=== PATIENT | female | born 1960 | race Caucasian/White ===

== ENCOUNTER 2017-04-24 08:15 | Day surgery (SDC) | payer OTHER ==
[~2017-04-24] VITALS: Ht 165.1 cm; Wt 101.8 kg
[2017-04-24] VITALS (13 sets, daily range): BP systolic 114–141; BP diastolic 61–88; PULSE 60–86; RESP 13–20; Ht 165.1 cm; Wt 101.8 kg
[2017-04-24] MEDS ORDERED: METOCLOPRAMIDE 10 MG INJ IV PRN (08:30)
[2017-04-24] MEDS ORDERED: FENTAnyl 50 MCG/ML VIAL IV PRN (08:30)
[2017-04-24] MEDS ORDERED: MEPERIDINE 25 MG INJ IV PRN (08:30)
[2017-04-24] MEDS ORDERED: DIPHENHYDRAMINE 50 MG INJ IV PRN (08:30)
[2017-04-24] MEDS ORDERED: HYDROmorphONE (0.2 MG/ML) 10ML SYG IV PRN ×3 (08:30)
[2017-04-24] MEDS ORDERED: ONDANSETRON 4 MG INJ IV PRN (08:30)
[2017-04-24] MEDS ORDERED: LISI20TA11 PO (08:31)
[2017-04-24] MEDS ORDERED: LIDOCAINE 2% (SDV) 5 ML INJ ONE ×2 (11:10→12:48)
[2017-04-24] MEDS ORDERED: ROPIVACAINE 0.5 % 30 ML VIAL ONE (11:11)
[2017-04-24] MEDS ORDERED: MIDAZOLAM 1 MG/ML 2 ML INJ ONE (11:11)
--- NOTE | 2017-04-24 12:01 | HPN ---
Date/Time of Note Date/Time of Note DATE: 04/24/17 TIME: 12:01 Interval H&P Admission Note Pt. seen H&P reviewed: No system changes KAI YAN MD Apr 24, 2017 12:01
[2017-04-24] MEDS ORDERED: OXYCODONE/ACETAMINOPHEN (5/325) TAB PO PRN (12:30)
[2017-04-24] MEDS ORDERED: morphine 2 MG INJ IV PRN (12:30)
[2017-04-24] MEDS ORDERED: morphine 10 MG INJ IV PRN (12:30)
[2017-04-24] MEDS ORDERED: ROCURONIUM 50 MG INJ ONE (12:48)
[2017-04-24] MEDS ORDERED: PROPOFOL 20 ML ONE (12:48)
[2017-04-24] MEDS ORDERED: SUCCINYLCHOLINE CHLORIDE 100 MG/5 ML SYG IV ONE (12:48)
[2017-04-24] MEDS ORDERED: CEFAZOLIN 1 GM INJ ONE (12:49)
[2017-04-24] MEDS ORDERED: SUGAMMADEX SODIUM 200 MG/2 ML VIAL IV ONE (12:49)
[2017-04-24] MEDS ORDERED: POLYMYXIN/BACITRACIN 1L IRRIG IRR ONE (13:01)
[2017-04-24] MEDS ORDERED: NEOMYC/POLYMYX/BACIT 30 GM OINT ONE (13:25)
[2017-04-24] MEDS: FENTAnyl 50 MCG/ML VIAL IV PRN ×2 (14:40→14:53)
--- NOTE | 2017-04-24 14:51 | SIPON ---
Date/Time of Note Date/Time of Note DATE: 04/24/17 TIME: 14:50 Operative Report Preoperative Diagnosis Right ankle pain Right ankle painful hardware Postoperative Diagnosis Right ankle pain Right ankle painful hardware Operation/Procedure Performed Right ankle hardware removal Surgeon Brian Yan MD assistant auto center manager Francheska Mcbride CRNA Anesthesia: general Estimated blood loss: minimal Transfusion Required none Specimen none Grafts/Implants none Complications none BRIAN YAN MD Apr 24, 2017 14:51
--- NOTE | 2017-04-24 21:25 | RADRPT ---
PROCEDURE: Intraoperative imaging of the right ankle with fluoroscopy. CLINICAL INDICATION: Right ankle pain. Hardware removal. Intraoperative. TECHNIQUE: Images of the right ankle were obtained in the operating room with an image intensifier . No radiologist was in attendance. Fluoroscopy time is 0.1 minutes and 3 images were obtained. COMPARISON: No prior study is available for comparison. FINDINGS: Images demonstrate hardware overlying the distal tibia and fibula. Screw holes are present in the di stal shafts of the tibia and fibula. IMPRESSION: 1. Intraoperative imaging of the right ankle. RPTAT: QQ .Fred Woods MD, Date Time Electronically viewed and signed by .Fred Woods MD, on 04/24/2017 21:25 .R/
--- NOTE | 2017-04-25 14:25 | RADRPT ---
Vent Rate: 60 bpm RR Interval: 0 msec ME Interval: 194 msec QRS Duration: 90 msec QT Interval: 416 msec QTC Interval: 416 msec P-R-T [place]: 54 - 40 - 48 degrees Normal sinus rhythm Normal ECG Electronically Signed By: Kofi Ewing [id number]
--- NOTE | 2017-04-27 02:43 | OPR ---
DATE OF OPERATION: 04/24/2017 PREOPERATIVE DIAGNOSIS: Right ankle pain, right ankle painful hardware. POSTOPERATIVE DIAGNOSES: Right ankle pain, ____ hardware. OPERATION PERFORMED: Right ankle hardware removal. SURGEON: Kai Valdovinos M.D. [employer] ROOM OPERATOR: Patti ____CONNER. ANESTHESIA: General. ESTIMATED BLOOD LOSS: Minimal. INDICATIONS: The patient is status post a right ankle pilon fracture. She now developed ankle arth ritis. In preparation for her future ankle fusion, we will plan on doing a hardware removal today w ith plan to come back in several months to do an ankle fusion. RISK NOTE: The patient was explained the risks and benefits of surgery in the patient's [facility], including, but not limited to, infection, bleeding, loss of limb, loss of life, need for futur e surgery, risk of injury to blood vessels, nerves or tendons, risk of anesthesia, risk of deep vein thrombosis. The patient understood these risks ____ signed the surgical consent form. DESCRIPTION OF PROCEDURE: The patient was met in the preoperative holding area and the correct oper ative extremity was marked and confirmed with both patient and consent. The patient was given preop erative antibiotics and anesthesia, The patient was brought to the operative theater, placed supine on operating table and given preoperative antibiotics and anesthesia. The patient was then turned to the prone position and all bony prominences were well padded. A tourniquet was placed on the ope rative extremity preoperatively. The patient was then prepped and draped in normal sterile fashion. Time-out was taken. All parties in the room agreed it was correct patient, extremity and procedur e. Tourniquet was brought up to 250 mmHg. An incision was made over the previous posterolateral inc ision site, taking it down through the typical interval to the posterior aspect of the tibia. Tere g this approach, care was taken to avoid any injury to the sural nerve, which was identified and ret racted appropriately. Further neurovascular structures were further protected during the case. The plate and screws were identified and all were removed without any complication. Attention was then turned to the distal fibula and an incision was made over the distal fibula site and the screws and plates were removed over the distal fibular shaft. At the end of the case, all wounds were irrigat ed thoroughly and closed in layers with 0 Vicryl followed by 2-0 Vicryl followed by a 3-0 Monocryl a nd a 4-0 Monocryl. All wounds were dressed with Xeroform, 4 x 4's, and ABDs and placed in a well-pa dded short leg splint. At the end of the case, all sponge and needle counts were correct. Dictated By: KAI OLIVARES/NTS Conf#: [id number] DID#: [id number]
== END 2017-04-24 16:35 | disposition home or self-care (01) ==
LOC: SDS 08:15
PROVIDERS: ATTEND Orthopaedic Surgery
DX: Z47.2 Encounter for removal of internal fixation device (principal); M25.571 Pain in right ankle and joints of right foot; I10 Essential (primary) hypertension; E66.01 Morbid (severe) obesity due to excess calories
CPT/HCPCS: 20680; 73610; 82306; 84703; 93005; J0690; J2175; J2250; J2405; J2795; J3010; Z7512; Z7610; 88300

== ENCOUNTER 2018-07-13 23:34 | Emergency (ER) | payer OTHER ==
[~2018-07-13] VITALS: Ht 165.1 cm; Wt 109.0 kg
[~2018-07-13 23:34] MED LIST: LISI-471 PO
[2018-07-13 23:47] VITALS: Ht 165.1 cm; Wt 109.0 kg
[2018-07-14] MEDS ORDERED: ALBUTEROL 0.083% (NEB) 2.5 MG/3 ML AMP NEB STA (02:38)
[2018-07-14] MEDS ORDERED: DEXAMETHASONE 10 MG/ML 1 ML INJ IV STA (02:38)
--- NOTE | 2018-07-14 02:57 | ERD ---
ER Documentation Chief Complaint Chief Complaint LEFT SIDED CHEST WALL PAIN RADIATES TO BACK WITH SOB X 2 WEEKS HPI 58-year-old female presenting with cough and shortness of breath for the past 2 weeks. She states that she initially had URI symptoms which have resolved. However the cough has not resolved. She has some back pain when she coughs, but is not complaining of any chest pain to me. She denies any fevers or chills. No phlegm production. No leg swelling ROS All systems reviewed and are negative except as per history of present illness. Medications Home Meds Active Scripts Albuterol Sulfate* (Ventolin HFA*) 18 Gm Hfa.aer.ad, 2 PUFF INHALATION Q4H, #1 INHALER Prov:TRAMAINE LEUNG MD 07/14/18 Prednisone* (Prednisone*) 20 Mg Tab, 60 MG PO DAILY for 4 Days, TAB Prov:TRAMAINE LEUNG MD 07/14/18 Reported Medications Lisinopril* (Lisinopril*) 20 Mg Tablet, 20 MG PO DAILY, #30 TAB 04/24/17 Allergies Allergies: Coded Allergies: No Known Allergy (Unverified , 07/14/18) PMhx/Soc Medical and Surgical Hx: pt denies Surgical Hx History of Surgery: No Anesthesia Reaction: No Hx Neurological Disorder: No Hx Respiratory Disorders: Yes (BRONCHITIS) Hx Cardiac Disorders: No Hx Psychiatric Problems: No Hx Miscellaneous Medical Probl: No Hx Alcohol Use: No Hx Substance Use: No Hx Tobacco Use: No Smoking Status: Never smoker FmHx Family History: No diabetes Physical Exam Vitals Vital Signs Date Temp Pulse Resp B/P (MAP) Pulse Ox O2 O2 Flow FiO2 Time Delivery Rate 07/14/18 98.6 74 21 132/64 100 Room Air 03:38 (86) 07/14/18 92 22 99 Nasal 2.0 02:59 Cannula 07/14/18 Nasal 2 02:50 Cannula 07/14/18 98.6 69 15 128/117 100 Room Air 02:33 (121) 07/13/18 98.5 70 19 182/84 97 23:47 (116) Physical Exam Const: No acute distress Head: Atraumatic Eyes: Normal Conjunctiva ENT: Normal External Ears, Nose and Mouth. Neck: Full range of motion. No meningismus. Resp: Clear to auscultation bilaterally Cardio: Regular rate and rhythm, no murmurs Abd: Soft, non tender, non distended. Normal bowel sounds Skin: No petechiae or rashes Back: No midline or flank tenderness Ext: No cyanosis, or edema Neur: Awake and alert Psych: Normal Mood and Affect Result Diagram: 07/14/1822907/14/18 0230 Results 24 hrs Laboratory Tests Test 07/14/18 02:30 White Blood Count 8.4 10^3/ul Red Blood Count 4.90 10^6/ul Hemoglobin 13.8 g/dl Hematocrit 41.3 % Mean Corpuscular Volume 84.3 fl Mean Corpuscular Hemoglobin 28.2 pg Mean Corpuscular Hemoglobin Concent 33.4 g/dl Red Cell Distribution Width 12.9 % Platelet Count 292 10^3/UL Mean Platelet Volume 8.4 fl Immature Granulocytes % 0.400 % Neutrophils % 53.6 % Lymphocytes % 37.5 % Monocytes % 4.7 % Eosinophils % 3.2 % Basophils % 0.6 % Nucleated Red Blood Cells % 0.0 /100WBC Immature Granulocytes # 0.030 10^3/ul Neutrophils # 4.5 10^3/ul Lymphocytes # 3.1 10^3/ul Monocytes # 0.4 10^3/ul Eosinophils # 0.3 10^3/ul Basophils # 0.1 10^3/ul Nucleated Red Blood Cells # 0.0 10^3/ul Sodium Level 140 mmol/L Potassium Level 4.2 mmol/L Chloride Level 104 mmol/L Carbon Dioxide Level 27 mmol/L Anion Gap 9 Blood Urea Nitrogen 13 mg/dl Creatinine 0.68 mg/dl Est Glomerular Filtrat Rate mL/min > 60 mL/min Glucose Level 114 mg/dl Calcium Level 9.4 mg/dl Troponin I < 0.012 ng/ml Current Medications Medications Dose Sig/Omi Start Time Status Last (Trade) Ordered Route PRN Stop Time Admin Dose Reason Admin Albuterol 5 mg ONCE STAT 07/14/18 DC 07/14/18 (Proventil NEB 02:38 02:59 0.083% (Neb)) 07/14/18 02:39 10 mg ONCE STAT 07/14/18 DC 07/14/18 Dexamethasone IV 02:38 02:46 (Decadron) 07/14/18 02:39 Procedures/MDM EMERGENT LABS AND DIAGNOSTIC STUDIES: Lab Results above were reviewed and interpreted by me. CBC: no anemia or evidence of infection 12-lead EKG was interpreted by Feliciano Leung MD: Normal Sinus Rhythm Normal axis Normal intervals No acute ST or T wave changes suggestive of acute ischemia or STEMI. Radiology Results as interpreted by Radiology below were reviewed by Ella Leung MD: Chest Xray: [] Initial Nursing notes reviewed. Previous Medical Records requested via the Electronic Health Record. EMERGENCY DEPARTMENT COURSE / MEDICAL DECISION MAKING: Patient is presenting with symptoms consistent with bronchitis, likely viral in etiology. I have a low suspicion for bacterial bronchitis or pneumonia. Patients symptoms have stabilized while in the department after therapy. Vitals and respiratory status are stable. Patient is appropriate for outpatient supportive treatment and continued follow up with PCP in the next 2 days. If symptoms are not improving or worsening, patient instructed to return to ED for repeat evaluation. Patient's blood pressure was elevated (>120/80) but appears stable without evidence of hypertensive emergency or urgency. The patient was counseled about the risks of hypertension and urged to pursue outpatient monitoring and therapy within a week with their primary care physician. Departure Diagnosis: Primary Impression: Acute bronchitis Bronchitis organism: unspecified organism Qualified Codes: J20.9 - Acute bronchitis, unspecified Condition: Stable TRAMAINE LEUNG MD Jul 14, 2018 02:57
[2018-07-14] MEDS ORDERED: PRED20TA PO (03:29)
[2018-07-14] MEDS ORDERED: ALBU18HF INHALATION (03:29)
[2018-07-14 03:38] VITALS: BP 132/64; PULSE 74; RESP 21
== END 2018-07-14 04:12 | disposition home or self-care (01) ==
LOC: E/R 23:34
DX: J20.9 Acute bronchitis, unspecified (principal); R06.02 Shortness of breath
CPT/HCPCS: 36415; 71045; 80048; 84484; 85025; 94664; 96374; J1100; Z7502; Z7610; 93005

== ENCOUNTER 2018-07-22 13:13 | Emergency (ER) | payer OTHER ==
[~2018-07-22] VITALS: Ht 165.1 cm; Wt 101.8 kg
[~2018-07-22 13:13] MED LIST changes: +ALBU18HF INHALATION; +PRED20TA PO
[2018-07-22 13:19] VITALS: Ht 165.1 cm; Wt 101.8 kg
[2018-07-22] MEDS ORDERED: SOD CHLORIDE 0.9% 1,000 ML IV STA (13:41)
[2018-07-22] MEDS ORDERED: ALBUTEROL 0.083% (NEB) 2.5 MG/3 ML AMP NEB STA (13:41)
--- NOTE | 2018-07-22 14:01 | ERD ---
ER Documentation Chief Complaint Chief Complaint dizziness x 1 week, SOB x this am HPI This is a 58-year-old female who is had a cough with nonproductive sputum, she has had this for 1 week. She says that she has had no fever no nausea vomiting or diarrhea. She this morning she woke up and took her vitamins with her lisinopril and Norvasc. She then got into the shower and when she got out of the shower she felt dizzy and felt like she is going to pass out. There was no syncopal episode. No chest pain or shortness of breath. No focal neurological complaints. She said she took her blood pressure via a wrist BP monitor which showed blood pressure in the systolic in the 80s. ROS All systems reviewed and are negative except as per history of present illness. Medications Home Meds Active Scripts Albuterol Sulfate* (Ventolin HFA*) 18 Gm Hfa.aer.ad, 2 PUFF INHALATION Q4H, #1 INHALER Prov:TRAMAINE LEYVA MD 07/14/18 Reported Medications Lisinopril* (Lisinopril*) 20 Mg Tablet, 20 MG PO DAILY, #30 TAB 04/24/17 Discontinued Scripts Prednisone* (Prednisone*) 20 Mg Tab, 60 MG PO DAILY for 4 Days, TAB Prov:TRAMAINE LEYVA MD 07/14/18 Allergies Allergies: Coded Allergies: No Known Allergy (Unverified , 07/22/18) PMhx/Soc History of Surgery: No Anesthesia Reaction: No Hx Neurological Disorder: No Hx Respiratory Disorders: Yes (BRONCHITIS) Hx Cardiac Disorders: Yes (HTN) Hx Psychiatric Problems: No Hx Miscellaneous Medical Probl: No Hx Alcohol Use: No Hx Substance Use: No Hx Tobacco Use: No Smoking Status: Never smoker FmHx Family History: No coronary disease Physical Exam Vitals Vital Signs Date Temp Pulse Resp B/P (MAP) Pulse Ox O2 O2 Flow FiO2 Time Delivery Rate 07/22/18 82 18 98 21 14:21 07/22/18 99.6 90 18 142/75 96 13:19 (97) Physical Exam Const: Well-developed, well-nourished Head: Atraumatic, normocephalic Eyes: Normal Conjunctiva, PERRLA, EOMI, normal sclera, no nystagmus ENT: Normal External Ears, Nose and Mouth, moist mucus membranes. Neck: Full range of motion. No meningismus, no lymphadenopathy. Resp: No increased work of breathing, repetitive coughing mild wheezes expiratory, but good air movement] Cardio: Regular rate and rhythm, no murmurs, S1 S2 present Abd: Soft, non tender x 4, non distended. Normal bowel sounds, no guarding or rebound, no pulsitile abdominal masses or bruits Skin: No petechiae or rashes, no ecchymosis , no maculopapular rash Back: No midline or flank tenderness Ext: No cyanosis, or edema, FROM x 4, normal inspection, neurovascularly intact x 4 Neur: Awake and alert, STR 5/5 x 4, sensation intact x 4, no focal findings, cerebellum intact Psych: Normal Mood and Affect Result Diagram: 07/22/18 1346 07/22/18 1346 Results 24 hrs Laboratory Tests Test 07/22/18 13:46 White Blood Count 10.6 10^3/ul Red Blood Count 5.61 10^6/ul Hemoglobin 15.9 g/dl Hematocrit 46.9 % Mean Corpuscular Volume 83.6 fl Mean Corpuscular Hemoglobin 28.3 pg Mean Corpuscular Hemoglobin Concent 33.9 g/dl Red Cell Distribution Width 12.9 % Platelet Count 296 10^3/UL Mean Platelet Volume 8.5 fl Immature Granulocytes % 1.400 % Neutrophils % 73.1 % Lymphocytes % 16.1 % Monocytes % 7.4 % Eosinophils % 1.6 % Basophils % 0.4 % Nucleated Red Blood Cells % 0.0 /100WBC Immature Granulocytes # 0.150 10^3/ul Neutrophils # 7.8 10^3/ul Lymphocytes # 1.7 10^3/ul Monocytes # 0.8 10^3/ul Eosinophils # 0.2 10^3/ul Basophils # 0.0 10^3/ul Nucleated Red Blood Cells # 0.0 10^3/ul Sodium Level 142 mmol/L Potassium Level 4.3 mmol/L Chloride Level 107 mmol/L Carbon Dioxide Level 25 mmol/L Anion Gap 10 Blood Urea Nitrogen 20 mg/dl Creatinine 1.21 mg/dl Est Glomerular Filtrat Rate mL/min 46 mL/min Glucose Level 164 mg/dl Calcium Level 9.6 mg/dl Troponin I < 0.012 ng/ml Current Medications Medications Dose Sig/Omi Start Time Status Last (Trade) Ordered Route PRN Stop Time Admin Dose Reason Admin Sodium 1,000 ml @ Q1H STAT 07/22/18 DC 07/22/18 Chloride 1,000 mls/hr IV 13:41 13:53 07/22/18 14:40 Albuterol 7.5 mg ONCE STAT 07/22/18 DC 07/22/18 (Proventil NEB 13:41 14:21 0.083% (Neb)) 07/22/18 13:43 Procedures/MDM Patient: JULIANA HAWLEY : 1960 Age: 58 Sex: F MR #: [id number] DOS: 07/22/18 1341 Ordering MD: JOSELIN VALLES DO Location: E/R Room/Bed: PROCEDURE: XR Chest. CLINICAL INDICATION: chest pain TECHNIQUE: Single frontal view of the chest was obtained COMPARISON: 07/14/2018 FINDINGS: The heart and mediastinum are within normal limits. The lungs are clear. There is no pleural effusion or pneumothorax. RPTAT: AA IMPRESSION: No acute disease. .Romie Vazquez MD, MD Date Time Electronically viewed and signed by .Romie Vazquez MD, MD on 07/22/2018 14:49 .S/ CC: JOSELIN VALLES DO [id number] EKG: Rate/Rhythm: Normal Sinus Rhythm,NL intervals QRS, ST, QT: NORMAL MD, QRS, QT] Impression: NORMAL EKG Patient was near syncopal this morning is likely due to her blood pressure meds. Her vital signs are currently stable here. She has a cough but no pneumonia on x-ray likely has a viral illness/bronchitis which I will treat accordingly. Will discharge home with albuterol inhaler, prednisone, Zithromax Patient feels much better at this time, and vital signs are normal, symptoms have improved. I did give strict instructions to return to the ED if symptoms continue or worsen, patient will otherwise follow-up with primary care physician. Patient understood instructions and agreed to plan. Disclaimer: Inadvertent spelling and grammatical errors are likely due to EHR/dictation software use and do not reflect on the overall quality of patient care. Also, please note that the electronic time recorded on this note does not necessarily reflect the actual time of the patient encounter. Departure Diagnosis: Primary Impression: Near syncope Additional Impression: Bronchitis Condition: Stable JOSELIN VALLES DO Jul 22, 2018 14:01
[2018-07-22] MEDS ORDERED: AZIT250T PO (15:43)
[2018-07-22] MEDS ORDERED: ALBU8.5H8 INH (15:43)
[2018-07-22] MEDS ORDERED: PRED20TA PO (15:43)
[2018-07-22 15:46] VITALS: BP 125/86; PULSE 90; RESP 20
== END 2018-07-22 16:08 | disposition home or self-care (01) ==
LOC: E/R 13:13
DX: R55 Syncope and collapse (principal); J40 Bronchitis, not specified as acute or chronic; I10 Essential (primary) hypertension
CPT/HCPCS: 36415; 71045; 80048; 84484; 85025; 93005; 94664; J7030; Z7502; Z7610